=== PATIENT | female | born 1980 | race Caucasian/White ===

== ENCOUNTER 2017-02-06 23:59 | Emergency (ER) | payer OTHER ==
[2017-02-07 00:08] VITALS: RESP 18
[2017-02-07] MEDS ORDERED: PROPARACAINE 0.5% OPHTH DROPS 15 ML BTL LEFT EYE STA (00:25)
[2017-02-07] MEDS ORDERED: TOBRAMYCIN 0.3% OPHTH DROPS 5 ML BTL LEFT EYE STA (00:49)
--- NOTE | 2017-02-07 00:51 | ED ---
Eye Problem HPI - General Chief complaint: Eye Problems Stated complaint: Chemical in eye Time Seen by Provider: 02/07/17 00:12 Source: patient, family Mode of arrival: ambulatory Limitations: no limitations - History of Present Illness Initial comments: 36-year-old female patient possessed to emergency department today for evaluation of left eye discomfort and blurred vision. Patient states that she got splashed in the left eye with a paint stripping agent while stripping the stain from her deck around 1700 this afternoon. Patient states that it was just one drop to got into her eye. States she immediately flushed with water from the hose, and then flushed with an eyewash kit for 20 minutes. Patient states that after that she was asymptomatic however did develop some scratching/ burning pain to the eye intermittently since 5 PM. States once his symptoms started she flushed again with water. Patient states that she did phone poison control who instructed her to come here if she had any change in her vision. Patient states that she did have some intermittent blurriness and flashes to the left eye so presented for evaluation. She states currently she feels discomfort near the outer canthus of the eye. She states she occasionally has some watery discharge. She states that she does have some swelling to the upper and lower lid. She denies any headache, dizziness, neck pain, fever, or chills. Denies any other concerns. - Related Data Home Medications Medication Instructions Recorded Confirmed Escitalopram Oxalate [Lexapro] 10 mg PO DAILY 02/07/17 02/07/17 busPIRone HCL [Buspar] 7.5 mg PO BID 02/07/17 02/07/17 Allergies Allergy/AdvReac Type Severity Reaction Status Date / Time codeine AdvReac Unknown Verified 02/07/17 00:08 Review of Systems ROS Statement: Those systems with pertinent positive or pertinent negative responses have been documented in the HPI. ROS Other: All systems not noted in ROS Statement are negative. Past Medical History Past Medical History: GERD/Reflux Additional Past Medical History / Comment(s): Obstetric history: First was a vaginal delivery 8#, 2003. Second she delivered in an ambulance 7#14oz in 2011. Third was a miscarriage with D&C. This is her fourth and she has had care with Dr Carbajal since 14 weeks gestation. A+, Rub Imm, RPR NR, Hep B neg, HIV NR. GBS neg. History of Any Multi-Drug Resistant Organisms: None Reported Additional Past Surgical History / Comment(s): D&C Past Anesthesia/Blood Transfusion Reactions: No Reported Reaction Past Psychological History: Depression Smoking Status: Former smoker Past Alcohol Use History: None Reported Past Drug Use History: None Reported - Past Family History Mother Family Medical History: Diabetes Mellitus, Dialysis, Hypertension General Exam Limitations: no limitations General appearance: alert, in no apparent distress Eye exam: Present: normal appearance, PERRL, EOMI, conjunctival injection (Mild conjunctival injection on the left), other (Fluoresceins stain with with lamp examination reveals a area of fluorescein uptake in the sclera at approximately 3:00. No evidence of corneal abrasion, ulcer, or injury.). Absent: scleral icterus, nystagmus, periorbital swelling ENT exam: Present: normal exam, normal oropharynx, mucous membranes moist Respiratory exam: Present: normal lung sounds bilaterally. Absent: respiratory distress, wheezes, rales, rhonchi, stridor Cardiovascular Exam: Present: regular rate, normal rhythm, normal heart sounds. Absent: systolic murmur, diastolic murmur, rubs, gallop, clicks Neurological exam: Present: alert, oriented X3, CN II-XII intact Psychiatric exam: Present: normal affect, normal mood Skin exam: Present: warm, dry, intact, normal color. Absent: rash Course Vital Signs 02/07/17 02/07/17 00:06 01:22 Temperature 98.5 F 98 F Pulse Rate 75 90 Respiratory 18 18 Rate Blood Pressure 119/60 139/79 O2 Sat by Pulse 99 97 Oximetry Medical Decision Making - Medical Decision Making 36-year-old female patient presented for evaluation of left eye discomfort after a, call splash around 5 PM. Floor seen standing with with lamp examination was performed and did show uptake in the sclera. Patient did flush immediately with water, and did at least 20 minutes of rinsing with a home eyewash kit. Patient states that she has continued flushing intermittently throughout the day. I did call and speak to poison control who states that her flushing should've been sufficient. PH of the eye was 7.0. Patient will be discharged with tobramycin drops to be instilled 4 times daily. She is instructed to follow-up with [facility] in one to 2 days for recheck, she requested Dr. Anderson. She is instructed to return here immediately for any new , worsening, or concerning symptoms. Patient verbalizes understanding and agrees with this plan. Disposition Clinical Impression: Chemical conjunctivitis of left eye Disposition: HOME SELF-CARE Condition: Good Instructions: Conjunctivitis (ED) Additional Instructions: Use the tobramycin drops him a 2 drops to the left eye every 6 hours. Follow- up with [facility] in one to 2 days if symptoms haven't resolved. Return here immediately for any new, worsening, or concerning symptoms. Referrals: Karel Carpenter MD [Primary Care Provider] - 1-2 days Geovani Anderson MD [STAFF PHYSICIAN] - 1-2 days Time of Disposition: 00:51
[2017-02-07 01:24] VITALS: BP 139/79; PULSE 90; TEMP 98
== END 2017-02-07 01:23 | disposition home or self-care (01) ==
LOC: EC 23:59
DX: T65.6X1A Toxic effect of paints and dyes, not elsewhere classified, accidental (unintentional), initial encounter (principal); H10.212 Acute toxic conjunctivitis, left eye; F32.9 Major depressive disorder, single episode, unspecified; Z87.891 Personal history of nicotine dependence; Z79.899 Other long term (current) drug therapy; Z88.5 Allergy status to narcotic agent
CPT/HCPCS: 99283

== ENCOUNTER → 2019-07-27 | Outpatient (CLI) | payer OTHER ==
--- NOTE | 2019-07-27 10:24 | US ---
EXAMINATION TYPE: US OB <= 14 wk twins DATE OF EXAM: 07/27/2019 COMPARISON: NONE CLINICAL HISTORY: Z36 Comfirm dates. Confirm dates, 5, para 3, miscarriage 1 EXAM PERFORMED: Transabdominal (TA) EXAM MEASUREMENTS: GESTATIONAL AGE / DATING Physician Established: (11 weeks/5 days) EDC: 02/10/2020 Dates by LMP: (11 weeks/5 days) EDC: 02/10/2020 Dates by First Scan: This is 1st scan Dates by Current Scan for Baby A: (11 weeks/1 days) EDC: 02/14/2020 Dates by Current Scan for Baby B: (11 weeks/2 days) EDC: 02/13/2020 MATERNAL ANATOMY Uterus: 15.7 x 6.6 x 11.1cm Right Ovary: 2.9 x 1.9 x 1.7cm Left Ovary: 2.9 x 1.8 x 2.7cm Post CDS / Adnexa: wnl Presence of free fluid: no Presence of corpus luteal cyst: left ovary: 1.6 x 1.2 x 1.5cm Presence of subchorionic bleed: no Presence of two separate gestational sacs: yes GESTATION / SURVEY TWIN A CRL: 4.2cm (11 wks/1 day) Yolk Sac (normal less than 6mm): 5.0mm Heart Rate: 171 bpm Rhythm: Normal IUP: Live IUP Nuchal Translucency 10-14wks (normal less than 3mm): 1.3mm TWIN B CRL: 4.5cm (11 wks/2 days) Yolk Sac (normal less than 6mm): 5.3mm Heart Rate: 168 bpm Rhythm: Normal IUP: Live IUP Nuchal Translucency 10-14wks (normal less than 3mm): 1.3mm Date of LMP: 05/06/2019 Beta HcG (if available): Not available at time of exam. Live twin IUP with baby A measuring 11 weeks 1 day with a heart rate of 171bpm and an estimated deliv diana date of 02/14/2020 and baby B measuring 11 weeks 2 days with a heart rate of 168bpm and an estima dung delivery date of 02/13/2020. IMPRESSION: Dichorionic, diamnionic live twin with twin A having a current gestational sono graphic age of 11 weeks and 1 day and twin B of 11 weeks and 2 days.
== END | disposition home or self-care (01) ==
LOC: RADUSWWP 08:55
PROVIDERS: ATTEND Obstetrics & Gynecology
DX: Z36.89 Encounter for other specified antenatal screening (principal); Z3A.11 11 weeks gestation of pregnancy
CPT/HCPCS: 76801; 76802; 76813; 76814

== ENCOUNTER 2019-12-08 17:02 | Outpatient (CLI) | payer OTHER ==
[2019-12-08 18:57] LABS: Appearance,Urine Cloudy (Clear); Bacteria,Urine Rare /hpf; Bilirubin,Urine Negative (Negative); Blood,Urine Moderate (Negative); Color,Urine Yellow; Glucose,Urine (UA) Negative (Negative); Hyaline Casts,Urine 3 /lpf (0-2); Ketones,Urine 2+ (Negative); Leukocyte Esterase,Urine Negative (Negative); Mucus,Urine Many /hpf; Nitrite,Urine Negative (Negative); PH, Urine 6.5 (5.0-8.0); Protein,Urine 1+ (Negative); RBC,Urine >182 /hpf (0-5); Specific Gravity,Urine 1.019 (1.001-1.035); Squamous Epithelial Cell,Urine <1 /hpf (0-4); Urobilinogen,Urine <2.0 mg/dL (<2.0); WBC,Urine 5 /hpf (0-5)
[2019-12-08 19:17] VITALS: BP 124/58; PULSE 91; RESP 16; TEMP 98.2
--- NOTE | 2019-12-09 10:51 | P.MSEPDOC ---
Presenting Problems - Arrival Data Date of Arrival on Unit: 12/08/19 Time of Arrival on Unit: 17:45 Mode of Transport: Ambulatory - Complaint OB-Reason for Admission/Chief Complaint: Possible Onset of Labor Comment: rtsided, and lower back pain Medical History - Information : 5 Para: 3 Term: 3 : 0 Abortions: Spontaneous or Elective: 1 Number of Living Children: 3 - Gestational Age Gestational Age by ASHLEE (wks/days): 30 Weeks and 5 Days - History Complications: Other Comment: twins Review of Systems - Review of Systems Constitutional: No problems Breast: No problems ENT: No problems Cardiovascular: No problems Respiratory: No problems Gastrointestinal: No problems Genitourinary: No problems Musculoskeletal: No problems Neurological: No problems Skin: No problems Vital Signs - Temperature Temperature: 98.2 F Temperature Source: Temporal Artery Scan - Pulse Right Radial Pulse Rate: 91 Pulse Assessment Method: Automatic Cuff - Respirations Respiratory Rate: 16 Oxygen Delivery Method: Room Air O2 Sat by Pulse Oximetry: 99 - Blood Pressure Right Arm Blood Pressure: 124/58 Blood Pressure Mean: 80 Blood Pressure Source: Automatic Cuff Medical Screen Scoring (Pre) - Cervical Exam Dilation: 0 cm = 0 Effacement: Exam Deferred Membranes: Intact - Uterine Contractions Frequency: > 5 minutes apart = 1 Duration: N/A Intensity: N/A - Maternal Vital Signs Maternal Temperature: N/A Maternal Blood Pressure: N/A Signs of Preeclampsia: N/A Maternal Respirations: N/A - Maternal Trauma Maternal Trauma: N/A - Assessment - Baby A Baseline FHR: 140 Heart Rate - NICHD Category: Category I (Normal) = 0 NST: Reactive Position: N/A Station: N/A - Total Score - Baby A Total Score - Baby A: 1 - Total Score - Baby B Total Score - Baby B: 1 - Total Score - Baby C Total Score - Baby C: 1 - Level of Risk - Baby A Level of Risk - Baby A: Low (0-5) - Level of Risk - Baby B Level of Risk - Baby B: Low (0-5) - Level of Risk - Baby C Level of Risk - Baby C: Low (0-5) Physician Notification (Pre) - Physician Notified Physician Notified Date: 12/08/19 Physician Notified Time: 18:00 New Order Received: Yes (monitor, ffn, exam, oral hyderate) - Notification Comment Comment: dr hernandez here. ffn and exam done per dr Disposition - Disposition OB Disposition: Physician follow up in office, Discharge to home, Written follow up instructions reviewed Discharge Date: 12/08/19 Discharge Time: 19:25 I agree with the RN Medical Screening Exam: Yes Risk & Benefit of care provided described in d/c instruction: Yes Diagnosis: FALSE LABOR BEFORE 37 COMPLETED WEEKS OF GEST, THIRD TRI
== END 2019-12-08 19:25 | disposition home or self-care (01) ==
LOC: FBPOP 17:02
PROVIDERS: ATTEND Obstetrics & Gynecology
DX: O47.03 False labor before 37 completed weeks of gestation, third trimester (principal); Z3A.30 30 weeks gestation of pregnancy
CPT/HCPCS: 59025; 82731; 81001; G0463; 99213

== ENCOUNTER 2019-12-13 02:58 | Observation (INO) | payer OTHER ==
[2019-12-13] MEDS ORDERED: LACTATED RINGERS 1,000 ML IV SCH ×2 (03:45)
[2019-12-13 04:22] LABS: Basophils % (A) 0 %; Eosinophils # (A) 0.1 k/uL (0-0.7); Eosinophils % (A) 1 %; HCT 32.6 % (34.0-46.0); HGB 10.8 gm/dL (11.4-16.0); Lymphocytes # (A) 1.1 k/uL (1.0-4.8); Lymphocytes % (A) 13 %; MCH 28.8 pg (25.0-35.0); MCHC 33.2 g/dL (31.0-37.0); MCV 86.6 fL (80.0-100.0); Monocytes # (A) 0.5 k/uL (0-1.0); Monocytes % (A) 7 %; Neutrophils # (A) 6.3 k/uL (1.3-7.7); Neutrophils % (A) 78 %; Platelet Count 145 k/uL (150-450); RBC 3.76 m/uL (3.80-5.40); WBC 8.1 k/uL (3.8-10.6)
[2019-12-13 04:24] LABS: ALT 10 U/L (4-34); AST 27 U/L (14-36); African American GFR (CKD) >90 (>60 ml/min/1.73 sqM); Albumin 3.2 g/dL (3.5-5.0); Alkaline Phosphatase 106 U/L (38-126); Anion Gap 6 mmol/L; Appearance,Urine Clear (Clear); Bilirubin,Urine Negative (Negative); Blood Urea Nitrogen 10 mg/dL (7-17); Blood,Urine Negative (Negative); Carbon Dioxide 23 mmol/L (22-30); Chloride 102 mmol/L (98-107); Color,Urine Light Yellow; Glucose 99 mg/dL (74-99); Glucose,Urine (UA) Negative (Negative); Ketones,Urine Negative (Negative); Leukocyte Esterase,Urine Negative (Negative); Nitrite,Urine Negative (Negative); Non-African American GFR(CKD) 88 (>60 ml/min/1.73 sqM); PH, Urine 7.5 (5.0-8.0); Potassium 3.4 mmol/L (3.5-5.1); Protein,Urine Negative (Negative); Sodium 131 mmol/L (137-145); Specific Gravity,Urine 1.004 (1.001-1.035); Total Bilirubin 0.3 mg/dL (0.2-1.3); Total Protein 5.8 g/dL (6.3-8.2); Urobilinogen,Urine <2.0 mg/dL (<2.0)
[2019-12-13] MEDS ORDERED: CITRIC ACID-SODIUM CITRATE 15 ML CUP PO ONE (04:45)
[2019-12-13] MEDS ORDERED: BUTORPHANOL 1 MG/ML 1 ML VIAL IV PRN (04:46)
--- NOTE | 2019-12-13 06:03 | P.HPOB ---
History of Present Illness H&P Date: 12/13/19 Chief Complaint: Kidney stone pain This patient is a 39-year-old 5 para 3 female with estimated date of confinement 02/10/2020 estimated gestational age 31-4/7 weeks gestation who called earlier this evening with complaints of worsening right-sided back pain that she feels is due to kidney stones. Patient has a known twin gestation. Patient's care is per Dr. Carbajal. Patient was apparently seen in labor and delivery last Wednesday with complaints of a similar pain at that time had some microscopic hematuria. fibronectin was negative and her cervix apparently was closed. Patient was discharged home and encouraged to have increased hydration. She was seen in the office yesterday and states that her pain is intermittently, and going but became much worse last night. At this time heart tones are category 1. Patient is having intermittent contractions every 2-5 minutes that do not appear strong. Repeat urinalysis is negative without e vidence of blood. Laboratory evaluation is negative as well. Patient refuses pelvic exam at this time because she is under the impression that it will increase her risk of delivery. Review of Systems Genitourinary: Reports flank pain, Reports Menstruation: Reports amenorrhea Past Medical History Past Medical History: GERD/Reflux, Hearing Disorder / Deafness History of Any Multi-Drug Resistant Organisms: None Reported Additional Past Surgical History / Comment(s): D&C Past Anesthesia/Blood Transfusion Reactions: No Reported Reaction Past Psychological History: Depression Smoking Status: Never smoker Past Alcohol Use History: None Reported Past Drug Use History: None Reported - Past Family History Mother Family Medical History: Diabetes Mellitus, Dialysis, Hypertension Medications and Allergies Home Medications Medication Instructions Recorded Confirmed Type Pnv No.95/Ferrous Fum/Folic AC 1 each PO DAILY 12/13/19 12/13/19 History [ Multivitamin Tablet] RX: Iron 1 tab PO DAILY 12/13/19 12/13/19 History Allergies Allergy/AdvReac Type Severity Reaction Status Date / Time codeine AdvReac Unknown Verified 12/13/19 03:21 Exam Vital Signs Temp Pulse Resp BP Pulse Ox 12/13/19 03:30 96.7 F L 77 16 133/74 98 Intake and Output 12/12/19 12/12/19 12/13/19 14:59 22:59 06:59 Other: Weight 83.007 kg Patient refused pelvic exam Results Result Diagrams: 12/13/19 03:50 12/13/19 03:50 Abnormal Lab Results - Last 24 Hours (Table) 12/13/19 12/13/19 Range/Units 03:50 03:50 RBC 3.76 L (3.80-5.40) m/uL Hgb 10.8 L (11.4-16.0) gm/dL Hct 32.6 L (34.0-46.0) % Plt Count 145 L (150-450) k/uL Sodium 131 L (137-145) mmol/L Potassium 3.4 L (3.5-5.1) mmol/L Total Protein 5.8 L (6.3-8.2) g/dL Albumin 3.2 L (3.5-5.0) g/dL Assessment and Plan Assessment: This is a 39-year-old 5 para 3 female 31-4/7 weeks gestation who presents to labor and delivery with persistent flank pain. Patient did have a urinalysis on Wednesday with hematuria however this appears to have cleared. Patient this time is refusing cervical examination because she is under the impression this will increase her risk of delivery. I did explain to her that there is no evidence that cervical exams increased risk of labor or delivery. In fact it is even more important to have frequent pelvic exams and a twin gestation to detect premature dilation. Regardless, we have decided that she will discuss this with her primary dietary server this morning and she can decide if she wants to have a cervical exam. She is having contractions every 2-5 minutes on the monitor although they do not appear significant. I also ordered a bilateral renal ultrasound to see if the patient has any visible kidney stones. I had a discussion with the patient and her about the clinical plan and they understand and all questions were answered. (1) 31 to 32 weeks gestation of Current Visit: Yes Status: Acute Code(s): LPO5276 - SNOMED Code(s): 486825722 (2) Twin gestation in third trimester Current Visit: Yes Status: Acute Code(s): O30.003 - TWIN PREG, UNSP NUM PLCNTA & AMNIO SACS, THIRD TRIMESTER SNOMED Code(s): 73735096 (3) Flank pain in patient Current Visit: Yes Status: Acute Code(s): O26.899 - OTH RELATED CONDITIONS, UNSPECIFIED TRIMESTER; R10.9 - UNSPECIFIED ABDOMINAL PAIN SNOMED Code(s): 193672685
--- NOTE | 2019-12-13 09:17 | US ---
EXAMINATION TYPE: US kidneys/renal and bladder DATE OF EXAM: 12/13/2019 COMPARISON: NONE CLINICAL HISTORY: possible kidney stones. Right flank and back pain, hematuria, patient is 31 weeks p regnant EXAM MEASUREMENTS: Right Kidney: 12.6 x 6.0 x 6.7 cm Left Kidney: 11.5 x 5.3 x 6.5 cm Right Kidney: Moderate hydronephrosis. No shadowing nephrolithiasis. Left Kidney: No hydronephrosis. No shadowing nephrolithiasis. Urinary Bladder: Not visualized. Entrepreneurial Finance Professor reports patient voided just prior to examination. IMPRESSION: 1. Moderate right-sided hydronephrosis. Differential includes physiological changes of jake nirav obstructive uropathy. No nephrolithiasis seen. 2. No left hydronephrosis. 3. Urinary bladder is empty and not visualized.
[2019-12-13 09:34] VITALS: BP 109/57; PULSE 83; RESP 18; TEMP 96.8
--- NOTE | 2019-12-13 09:52 | P.GSCN ---
History of Present Illness Consult date: 12/13/19 History of present illness: The patient is a 39-year-old female 5 para 3, 31-1/2 weeks who last Steven developed right flank pain. She presented to the hospital. She is found to have microscopic hematuria. An ultrasound showed right hydronephrosis. It was assumed based on these findings that she had a ureteral stone. The patient had no history of ureteral stones. Discharged home with pain medicine. The pain worsened such that she re-presented to the hospital last night. She had another ultrasound identifying right-sided hydronephrosis. She has no evidence of hematuria at this point in time. She points to discomfort at her right sacroiliac joint. There is no radiation of the discomfort. Her pain is 5 out of 10 at this point in time. Review of Systems All systems: negative - Constitutional Denies fever, Denies weight loss - EENT Eyes: denies blurred vision Ears, nose, mouth and throat: Denies dysphagia - Cardiovascular Denies chest pain, Denies shortness of breath - Respiratory Denies cough, Denies 7 - Gastrointestinal Reports as per HPI - Genitourinary Genitourinary: Denies dysuria, Denies hematuria - Integumentary Denies rash, Denies unusual bruising - Neurological Denies headaches, Denies syncope - Hematologic/Lymphatic Denies easy bleeding, Denies easy bruising Past Medical History Past Medical History: GERD/Reflux, Hearing Disorder / Deafness Additional Past Medical History / Comment(s): Obstetric history: First was a vaginal delivery 8#, 2003. Second she delivered in an ambulance 7#14oz in 2011. Third was a miscarriage with D&C. This is her fourth and she has had care with Dr Carbajal since 14 weeks gestation. A+, Rub Imm, RPR NR, Hep B neg, HIV NR. GBS neg. History of Any Multi-Drug Resistant Organisms: None Reported Additional Past Surgical History / Comment(s): D&C Past Anesthesia/Blood Transfusion Reactions: No Reported Reaction Past Psychological History: Depression Smoking Status: Never smoker Past Alcohol Use History: None Reported Past Drug Use History: None Reported - Past Family History Mother Family Medical History: Diabetes Mellitus, Dialysis, Hypertension Medications and Allergies Home Medications Medication Instructions Recorded Confirmed Type Iron 1 tab PO DAILY 12/13/19 12/13/19 History Pnv No.95/Ferrous Fum/Folic AC 1 each PO DAILY 12/13/19 12/13/19 History [ Multivitamin Tablet] Allergies Allergy/AdvReac Type Severity Reaction Status Date / Time codeine AdvReac Unknown Verified 12/13/19 03:21 Surgical - Exam Vital Signs Temp Pulse Resp BP Pulse Ox 96.7 F L 77 16 133/74 98 12/13/19 03:30 12/13/19 03:30 12/13/19 03:30 12/13/19 03:30 12/13/19 03:30 - General Mild distress well developed, well nourished - Eyes PERRL - ENT no hearing loss - Neck trachea midline - Respiratory normal expansion, normal respiratory effort - Cardiovascular Rhythm: regular - Abdomen The patient is obviously . She has pain overlying the right sacroiliac joint. - Neurologic normal coordination, normal sensation - Musculoskeletal normal gait, normal posture - Psychiatric oriented to time, oriented to person, oriented to place, speech is normal, memory intact Results - Labs 12/13/19 03:50 12/13/19 03:50 Abnormal Lab Results - Last 24 Hours (Table) 12/13/19 12/13/19 Range/Units 03:50 03:50 RBC 3.76 L (3.80-5.40) m/uL Hgb 10.8 L (11.4-16.0) gm/dL Hct 32.6 L (34.0-46.0) % Plt Count 145 L (150-450) k/uL Sodium 131 L (137-145) mmol/L Potassium 3.4 L (3.5-5.1) mmol/L Total Protein 5.8 L (6.3-8.2) g/dL Albumin 3.2 L (3.5-5.0) g/dL Diabetes panel 12/13/19 Range/Units 03:50 Sodium 131 L (137-145) mmol/L Potassium 3.4 L (3.5-5.1) mmol/L Chloride 102 (98-107) mmol/L Carbon Dioxide 23 (22-30) mmol/L BUN 10 (7-17) mg/dL Creatinine 0.85 (0.52-1.04) mg/dL Glucose 99 (74-99) mg/dL Calcium 10.0 (8.4-10.2) mg/dL AST 27 (14-36) U/L ALT 10 (4-34) U/L Alkaline Phosphatase 106 (38-126) U/L Total Protein 5.8 L (6.3-8.2) g/dL Albumin 3.2 L (3.5-5.0) g/dL Calcium panel 12/13/19 Range/Units 03:50 Calcium 10.0 (8.4-10.2) mg/dL Albumin 3.2 L (3.5-5.0) g/dL Pituitary panel 12/13/19 Range/Units 03:50 Sodium 131 L (137-145) mmol/L Potassium 3.4 L (3.5-5.1) mmol/L Chloride 102 (98-107) mmol/L Carbon Dioxide 23 (22-30) mmol/L BUN 10 (7-17) mg/dL Creatinine 0.85 (0.52-1.04) mg/dL Glucose 99 (74-99) mg/dL Calcium 10.0 (8.4-10.2) mg/dL Adrenal panel 12/13/19 Range/Units 03:50 Sodium 131 L (137-145) mmol/L Potassium 3.4 L (3.5-5.1) mmol/L Chloride 102 (98-107) mmol/L Carbon Dioxide 23 (22-30) mmol/L BUN 10 (7-17) mg/dL Creatinine 0.85 (0.52-1.04) mg/dL Glucose 99 (74-99) mg/dL Calcium 10.0 (8.4-10.2) mg/dL Total Bilirubin 0.3 (0.2-1.3) mg/dL AST 27 (14-36) U/L ALT 10 (4-34) U/L Alkaline Phosphatase 106 (38-126) U/L Total Protein 5.8 L (6.3-8.2) g/dL Albumin 3.2 L (3.5-5.0) g/dL - Imaging US - abdomen: report reviewed, image reviewed US - pelvic: report reviewed, image reviewed Assessment and Plan Assessment: Impression: Right-sided flank pain with hydronephrosis. Possibilities include normal , sacroiliac irritation, right ureteral stone. Recommendations: Since the patient's discomfort is not too bad I would observe her another 24 hours. If the pain persists then a KUB to be appropriate to see if we can see a stone. I discussed with the patient that at this stage of her KUB be safe for the fetus at 31-1/2 weeks. However regardless I would like to minimize any radiation if possible. We'll see how she proceeds over the next 24 hours.
--- NOTE | 2019-12-13 13:36 | P.DS ---
Providers Date of admission: 12/13/19 03:36 Expected date of discharge: 12/13/19 Attending physician: Taylor Carbajal Consults: 12/13/19 09:07 Consult Physician Urgent Consulting Provider: LUCRECIA TALBERT Urology Consult Reason/Comments: Possible kidney stone in Do you want consulting provider notified?: Yes Primary care physician: Stated None Hospital Course: This is a 39-year-old female with twin at approximately 31-1/2 weeks who presented with right back and flank pain. She had previously noted some blood when she urinated a few days ago and did have hematuria when she was in triage on Wednesday. Her urine is now clear. She did have an ultrasound of her kidneys that did show some right hydronephrosis. No stones were visualized. She was seen by urology. They did recommend that if her pain worsened, we could get a KUB x-ray. She currently states her pain is manageable and she has not requested any further pain medication. She is requesting to go home at this time. Vital signs are stable. Abdomen is soft and nontender. heart tones on both babies are reactive with irregular contractions. Pelvic exam was not performed per patient request. Her cervix was closed on Wednesday. Impression is twin gestation at 31-1/2 weeks, probable right kidney stone. Plan is to discharge home. She will continue oral hydration. I will give her a few Ty lenol with Codeine to take if needed. She states she does not have ALLERGY to codeine but only states that her mother told her it made her hyper. She will follow up in the office as scheduled and she is planning on doing nonstress tests twice weekly starting next week. She is advised to return to the hospital if she has any severe pain or bleeding. Patient Condition at Discharge: Stable Plan - Discharge Summary New Discharge Prescriptions: New Acetaminophen-Codeine 300-30mg [Tylenol w/codeine #3] 1 tab PO Q6H PRN 3 Days #12 tablet PRN Reason: Moderate To Severe Pain No Action Pnv No.95/Ferrous Fum/Folic AC [ Multivitamin Tablet] 1 each PO DAILY Iron 1 tab PO DAILY Discharge Medication List Acetaminophen-Codeine 300-30mg [Tylenol w/codeine #3] 1 tab PO Q6H PRN 3 Days #12 tablet 12/13/19 [Rx] Iron 1 tab PO DAILY 12/13/19 [History] Pnv No.95/Ferrous Fum/Folic AC [ Multivitamin Tablet] 1 each PO DAILY 12/13/19 [History] Follow up Appointment(s)/Referral(s): Taylor Carbajal DO [Doctor of Osteopathic Medicine] - 10 Days (Keep currently scheduled appointment) Discharge Disposition: HOME SELF-CARE
--- NOTE | 2019-12-14 07:18 | P.PN ---
Progress Note - Text Progress Note Date: 12/14/19 I stopped by to see this patient who is 31 weeks' and in the hospital for right flank pain with a possible stone. Her examination identified pain over the SI joint on the right side. She apparently after I saw her yesterday felt much better and elected to go home. I am not certain whether there is a stone. Based on her physical examination and I do not suspect so however she did have a urinalysis, non-clean catch non-catheterized that showed microscopic hematuria last week. Further urologic problems arise please feel free to contact me.
== END 2019-12-13 14:45 | disposition home or self-care (01) ==
LOC: FBPOP 02:58 → 4FBP 03:36
PROVIDERS: ADMIT Obstetrics & Gynecology; ATTEND Obstetrics & Gynecology
DX: O99.89 Other specified diseases and conditions complicating pregnancy, childbirth and the puerperium (principal); N13.30 Unspecified hydronephrosis; O26.893 Other specified pregnancy related conditions, third trimester; O62.0 Primary inadequate contractions; O30.003 Twin pregnancy, unspecified number of placenta and unspecified number of amniotic sacs, third trimester; O99.613 Diseases of the digestive system complicating pregnancy, third trimester; K21.9 Gastro-esophageal reflux disease without esophagitis; H91.90 Unspecified hearing loss, unspecified ear; O99.343 Other mental disorders complicating pregnancy, third trimester; F32.9 Major depressive disorder, single episode, unspecified; Z3A.31 31 weeks gestation of pregnancy; Z98.890 Other specified postprocedural states; Z87.448 Personal history of other diseases of urinary system; Z79.899 Other long term (current) drug therapy; Z88.5 Allergy status to narcotic agent; Z83.3 Family history of diabetes mellitus; Z84.1 Family history of disorders of kidney and ureter; Z82.49 Family history of ischemic heart disease and other diseases of the circulatory system; M54.5 Low back pain
CPT/HCPCS: 59025; 96374; 80053; 85025; 81003; 76770; G0463; G0378; J0595; 96360; 96361; 99214

== ENCOUNTER 2019-12-18 15:44 | Outpatient (CLI) | payer OTHER ==
--- NOTE | 2019-12-21 19:37 | P.MSEPDOC ---
Presenting Problems - Arrival Data Date of Arrival on Unit: 12/18/19 Time of Arrival on Unit: 15:44 Mode of Transport: Ambulatory - Complaint OB-Reason for Admission/Chief Complaint: NST Comment: pt here for twice weekly NST for twin gestation Medical History - Information : 5 Para: 3 Term: 3 : 0 Abortions: Spontaneous or Elective: 1 Number of Living Children: 2 - Gestational Age Gestational Age by ASHLEE (wks/days): 32 Weeks and 2 Days Review of Systems - Review of Systems Constitutional: No problems Breast: No problems ENT: No problems Cardiovascular: No problems Respiratory: No problems Gastrointestinal: No problems Genitourinary: No problems Musculoskeletal: No problems Neurological: No problems Skin: No problems Physician Notification (Pre) - Physician Notified Physician Notified Date: 12/18/19 Physician Notified Time: 16:48 New Order Received: Yes - Notification Comment Comment: discharge pt home Disposition - Disposition OB Disposition: Discharge to home, Written follow up instructions reviewed Discharge Date: 12/18/19 Discharge Time: 16:55 I agree with the RN Medical Screening Exam: Yes Risk & Benefit of care provided described in d/c instruction: Yes Diagnosis: TWIN , DICHORIONIC/DIAMNIOTIC, THIRD TRIMESTER
== END 2019-12-18 16:55 | disposition home or self-care (01) ==
LOC: FBPOP 15:44
PROVIDERS: ATTEND Obstetrics & Gynecology
DX: O30.043 Twin pregnancy, dichorionic/diamniotic, third trimester (principal); Z3A.32 32 weeks gestation of pregnancy
CPT/HCPCS: 59025

== ENCOUNTER 2019-12-22 13:34 | Outpatient (CLI) | payer OTHER | END 2019-12-22 14:12 | disposition home or self-care (01) | LOC: FBPOP 13:34 | PROVIDERS: ATTEND Obstetrics & Gynecology | DX: O30.009 Twin pregnancy, unspecified number of placenta and unspecified number of amniotic sacs, unspecified trimester (principal); Z3A.00 Weeks of gestation of pregnancy not specified | CPT/HCPCS: 59025; G0463; 99213 ==

== ENCOUNTER 2019-12-25 10:09 | Outpatient (CLI) | payer OTHER ==
[2019-12-25 10:54] VITALS: BP 124/71; PULSE 113; RESP 15; TEMP 98.1
--- NOTE | 2019-12-28 12:15 | P.MSEPDOC ---
Presenting Problems - Arrival Data Date of Arrival on Unit: 12/25/19 Time of Arrival on Unit: 10:09 Mode of Transport: Ambulatory - Complaint OB-Reason for Admission/Chief Complaint: NST Medical History - Information : 5 Para: 3 Term: 3 : 0 Abortions: Spontaneous or Elective: 1 Number of Living Children: 3 - Gestational Age Gestational Age by ASHLEE (wks/days): 33 Weeks and 2 Days - History Complications: Multiple Review of Systems - Review of Systems Constitutional: No problems Breast: No problems ENT: No problems Cardiovascular: No problems Respiratory: No problems Gastrointestinal: No problems Genitourinary: No problems Musculoskeletal: No problems Neurological: No problems Skin: No problems Vital Signs - Temperature Temperature: 98.1 F Temperature Source: Oral - Pulse Brachial Pulse Rate: 113 Pulse Assessment Method: Auscultation - Respirations Respiratory Rate: 15 Oxygen Delivery Method: Room Air O2 Sat by Pulse Oximetry: 98 - Blood Pressure Right Arm Blood Pressure: 124/71 Blood Pressure Mean: 88 Blood Pressure Source: Automatic Cuff Medical Screen Scoring (Pre) - Cervical Exam Dilation: Exam Deferred Effacement: Exam Deferred Membranes: Intact - Uterine Contractions Frequency: N/A Duration: N/A Intensity: N/A - Maternal Vital Signs Maternal Temperature: N/A Maternal Blood Pressure: N/A Signs of Preeclampsia: N/A Maternal Respirations: N/A - Maternal Trauma Maternal Trauma: N/A - Assessment - Baby A Baseline FHR: 145 Heart Rate - NICHD Category: Category I (Normal) = 0 NST: Reactive Position: N/A Station: N/A - Assessment - Baby B Baseline FHR: 135 Heart Rate - NICHD Category: Category I (Normal) = 0 NST: Reactive Position: N/A Station: N/A - Total Score - Baby A Total Score - Baby A: 0 - Total Score - Baby B Total Score - Baby B: 0 - Total Score - Baby C Total Score - Baby C: 0 - Level of Risk - Baby A Level of Risk - Baby A: Low (0-5) - Level of Risk - Baby B Level of Risk - Baby B: Low (0-5) - Level of Risk - Baby C Level of Risk - Baby C: Low (0-5) Physician Notification (Pre) - Physician Notified Physician Notified Date: 12/25/19 Physician Notified Time: 10:41 New Order Received: Yes Disposition - Disposition OB Disposition: Discharge to home Discharge Date: 12/25/19 Discharge Time: 10:44 I agree with the RN Medical Screening Exam: Yes Risk & Benefit of care provided described in d/c instruction: Yes Diagnosis: TWIN , DICHORIONIC/DIAMNIOTIC, THIRD TRIMESTER
== END 2019-12-25 10:44 | disposition home or self-care (01) ==
LOC: FBPOP 10:09
PROVIDERS: ATTEND Obstetrics & Gynecology
DX: O30.043 Twin pregnancy, dichorionic/diamniotic, third trimester (principal); Z3A.33 33 weeks gestation of pregnancy
CPT/HCPCS: 59025

== ENCOUNTER 2019-12-29 11:02 | Outpatient (CLI) | payer OTHER | END 2019-12-29 11:44 | disposition home or self-care (01) | LOC: FBPOP 11:02 | PROVIDERS: ATTEND Obstetrics & Gynecology | DX: O30.009 Twin pregnancy, unspecified number of placenta and unspecified number of amniotic sacs, unspecified trimester (principal); Z3A.00 Weeks of gestation of pregnancy not specified | CPT/HCPCS: 59025 ==

== ENCOUNTER 2020-01-01 08:51 | Outpatient (CLI) | payer OTHER | END 2020-01-01 09:52 | disposition home or self-care (01) | LOC: FBPOP 08:51 | PROVIDERS: ATTEND Obstetrics & Gynecology | DX: O30.003 Twin pregnancy, unspecified number of placenta and unspecified number of amniotic sacs, third trimester (principal) | CPT/HCPCS: 59025 ==

== ENCOUNTER 2020-01-03 19:30 | Observation (INO) | payer OTHER ==
[2020-01-03] MEDS ORDERED: BETAMET ACET-BETAMETH SOD PHOS 6 MG/ML MDV IM SCH (20:30)
[2020-01-03] MEDS: LACTATED RINGERS 1,000 ML IV SCH ×2 (20:53→23:42)
[2020-01-03 21:04] LABS: Appearance,Urine Clear (Clear); Bacteria,Urine Occasional /hpf; Bilirubin,Urine Negative (Negative); Blood,Urine Small (Negative); Color,Urine Light Yellow; Glucose,Urine (UA) Negative (Negative); Ketones,Urine Negative (Negative); Leukocyte Esterase,Urine Negative (Negative); Nitrite,Urine Negative (Negative); Protein,Urine Negative (Negative); RBC,Urine <1 /hpf (0-5); Specific Gravity,Urine 1.006 (1.001-1.035); Squamous Epithelial Cell,Urine 1 /hpf (0-4); Urobilinogen,Urine <2.0 mg/dL (<2.0); WBC,Urine 1 /hpf (0-5)
--- NOTE | 2020-01-03 22:44 | US ---
EXAMINATION TYPE: US OB >= 14 wk twins DATE OF EXAM: 01/03/2020 COMPARISON: US CLINICAL HISTORY: position. Position, EFW. . A1. GESTATIONAL AGE / DATING Physician Established: (34 weeks/4 days) EDC: 02/10/2020 Dates by LMP: (34 weeks/4 days) EDC: 02/10/2020 Dates by First Scan Baby A: (34 weeks/1 day) EDC: 02/13/2020 (*First scan, this was baby B measurement.) Dates by Current Scan for Baby A: (33 weeks/6 days) EDC: 02/15/2020 Dates by First Scan Baby B: (34 weeks/0 days) EDC: 02/14/2020 (*First scan, this was baby A measurement) Dates by Current Scan for Baby B: (34 weeks/3 days) EDC: 02/11/20 GENERAL TWIN SURVEY TWIN A LOCATION in regards to maternal abd: Maternal left. head appears closest to cervix. TWIN B LOCATION in regards to maternal abd: Maternal right. MEMBRANE SEEN: Yes CERVICAL LENGTH (transabdominal; norm > 3.0cm): Not well seen, not transvaginal exam necessary per Dr Sigrid Garsia. PLACENTA: Anterior. Hypoechoic area seen measurin.2 x 0.8 x 1.3 cm. PREVIA: No previa seen. Possible posterior lobe posterior to baby B. Limited evaluation and visibility of this area. TWIN A: SURVEY/BIOMETRY SPENCER:? 13.56 cm?Normal PRESENTATION: Vertex LIE: Longitudinal BPD: 8.48 cm 34 weeks / 1 day HC: 30.81 cm 34 weeks / 3 days AC: 30.75 cm 34 weeks / 5 days FL: 6.60 cm 34 weeks / 0 days ESTIMATED WEIGHT IN GRAMS: 2424 grams ESTIMATED WEIGHT IN LBS/OZS: 5 lbs. 6 oz. WEIGHT PERCENTAGE BASED ON ESTABLISHED DATES: 40.3% HC/AC: 1.00 Normal FL/AC: 21.46 Normal HEART RATE: 146 bpm RHYTHM: Normal TWIN B: SURVEY/BIOMETRY SPENCER:? 15.22 cm?Normal PRESENTATION: Breech LIE: Longitudinal BPD: 8.38 cm 33 weeks / 5 days HC: 31.39 cm 35 weeks / 1 day AC: 30.92 cm 34 weeks / 6 days FL: 6.77 cm 34 weeks / 6 days ESTIMATED WEIGHT IN GRAMS: 2509 grams ESTIMATED WEIGHT IN LBS/OZS: 5 lbs. 9 oz. WEIGHT PERCENTAGE BASED ON ESTABLISHED DATES: 50.9% HC/AC: 1.02 Normal FL/AC: 21.89 Normal HEART RATE: 132 bpm RHYTHM: Normal *Head measurements limited. IMPRESSION: Fetus A has cephalic presentation. Fetus B has breech presentation. There is satisfactory growth compared to 07/27/2019 exam. amniotic fluid is adequate.
--- NOTE | 2020-01-03 23:33 | P.HPOB ---
History of Present Illness H&P Date: 01/03/20 Chief Complaint: Intrauterine twins: labor Taylor is a 39-year-old at 34 weeks 4 days gestation arrives complaining of contractions. Initially on the monitor she was italia every 6-8 minutes and was dilated to 1&1/2 cm and 50% effaced and -3 station. fFn was collected and sent. Due to her prematurity and previous position as baby a breech a ultrasound was done SPENCER's. u/s Grossly normal, assessment weight was 5 lbs. 6 oz. and 5 lbs. 9 oz. in baby A and B. Baby a was vertex baby B continues to be breech. After approximately 2 hours of monitoring her contractions actually had spaced out dramatically and we were discussing recheck to allow her to go home. I addressed the patient and the and informed them that I wanted do a cervical exam to check and make sure she had not made cervical change and was stable for discharge. the became irate and said that I wasn't going to check her and I couldn't check her and that the original nurse had to check her because they didn't want any difference of opinion happening because they previously had a baby delivered in an ambulance because, it is their opinion that 2 separate nurses checked her and did not identify cervical change and discharge her to home with a previous . I tried to explain that I was then on-call and was ultimately my decision on whether not she was checked and whether or not she was stable to go home or stay and was really my responsibility to make sure that she and her babies were okay to be discharged home. he became argumentative and belligerent and said that I Was Not Going to Be Able to Check her. I tried to explain to him that it was really Taylor's decision and he informed me that she had previously told him that no one else was going to check her cervix . As there was little pointing arguing with him I explained explained that I need to document his refusal for me to be able to check his and I also explained that we would allow the nurse to continue to use a cervical exams. At one point during the discussion he did begin to stand up and point's finger and declared that I was "pissing him off". I also did inform them that they were compromising my ability to make correct decisions in her care moving forward since the decisions I was making were then based on other people's information rather than my own and that that puts me and they're babies at a disadvantage. I did try to explain over and over that it was I was trying to do was in my pain in their best interest and that I was looking out for them but he was very angry and upset so in making every attempt diffuse the situation I have allowed the nurse to check her and explained that the information again that I have is now not my own and making decisions based on summary someone else's information. The recheck did not show any cervical change and the fFn was negative. We had discussed because the contractions began getting closer together again either allowing her to stay overnight and receiving a second dose of steroids either in the morning or after 24 hours versus allowing her to go home and monitored herself. At this time she was not a candidate for transfer as she had made no cervical change and had a negative fFn, but I did offer them transfer as she is before 35 weeks and does have a twin and is italia they declined to transfer.. I did continue to monitor the babies and contraction pattern for approximately 30 minutes more. the contractions continued every 2-3 minutes so I again returned to the room and explained that I didn't a feel comfortable just discharging her to home and I felt she should stay and be monitored through the night. I explained the reasoning was predominantly that the fFn, while very accurate does have a failure rate of approximately 7% in twin gestations and w ith her history of precipitous delivery it would be safer to at least have her here so that if she was to start going into active labor we could either transfer her or in a worse case scenario come in and do a but her babies be transferred to another facility. Both twins a and B have been reactive throughout the evening have shown no abnormal heart tracings. Category 1 tracing noted on both babies. All questions are answered for both she and her at this time. We'll allow Dr. Carbajal to decide if steroids will be given at 12 hours or if she will, assuming stability of the and babies, discharge her and bring her back in 24 hours for second steroid dose area Taylor relates no other significant problems with the and is otherwise felt fine. Past medical history unremarkable Past surgical history D&C ALLERGIES none Social history unremarkable Family history of diabetes in her mother which ultimately caused her passing On physical exam vital signs are stable and afebrile. Heart regular, lungs clear, extremities without pain. Abdomen soft uterus is overall soft with continued what I would describe as mild to moderate contractions. She relates no other signs or symptoms of active labor (i.e. Breathing through them ,declaring they are painful, grimacing and pain, increasing or worsening of pelvic pressure). no cervical change has been noted in greater than 2 hours. We've discussed and the plan is to not recheck her cervix unless she begins to show increase signs or symptoms of labor including but not limited to above. Should that happen we will do another cervical exam and make decisions based on that finding. The decisions as reviewed her again were transfer of care versus continued monitoring versus potentially need to do the here and the babies ultimately may be transferred if that is the case. She is aware that there is a risk of needing magnesium sulfate if she goes into active labor to at least try and buy enough time for second steroid dose or allow for transfer. Assessment intrauterine Precis at 34 weeks 4 days gestation with twins: labor symptoms Plan: Continued IV hydration and contraction monitoring. Past Medical History Past Medical History: GERD/Reflux, Hearing Disorder / Deafness Additional Past Medical History / Comment(s): Obstetric history: First was a vaginal delivery 8#, 2003. Second she delivered in an ambulance 7#14oz in 2011. Third was a miscarriage with D&C. This is her fourth and she has had care with Dr Carbajal since 14 weeks gestation. A+, Rub Imm, RPR NR, Hep B neg, HIV NR. GBS neg. History of Any Multi-Drug Resistant Organisms: None Reported Additional Past Surgical History / Comment(s): D&C Past Anesthesia/Blood Transfusion Reactions: No Reported Reaction Smoking Status: Never smoker - Past Family History Mother Family Medical History: Diabetes Mellitus, Dialysis, Hypertension Medications and Allergies Home Medications Medication Instructions Recorded Confirmed Type Iron 1 tab PO DAILY 12/13/19 01/03/20 History Pnv No.95/Ferrous Fum/Folic AC 1 each PO DAILY 12/13/19 01/03/20 History [ Multivitamin Tablet] Allergies Allergy/AdvReac Type Severity Reaction Status Date / Time codeine AdvReac Unknown Verified 01/03/20 19:51 Exam Osteopathic Statement: *. No significant issues noted on an osteopathic structural exam other than those noted in the History and Physical/Consult. Vital Signs Temp Pulse Resp BP Pulse Ox 01/03/20 19:47 97.0 F L 107 H 18 114/74 98 Intake and Output 01/03/20 01/03/20 01/04/20 14:59 22:59 06:59 Other: Weight 85.275 kg Results Abnormal Lab Results - Last 24 Hours (Table) 01/03/20 Range/Units 20:30 Urine Blood Small H (Negative) Urine Bacteria Occasional H (None) /hpf
[2020-01-04] MEDS: LACTATED RINGERS 1,000 ML IV SCH ×2 (07:36→14:52)
[2020-01-04 07:39] VITALS: RESP 16
[2020-01-04] MEDS ORDERED: MAGNESIUM SULFATE GM 6 GM in SODIUM CHLORIDE 0.9% 100 ML IVPB ONE (09:50)
[2020-01-04] MEDS ORDERED: MAGNESIUM SULFATE-WATER PMX 20 GM in WATER FOR INJECTION 1 500ML.BAG IV SCH (10:00)
[2020-01-04 10:30] LABS: Basophils % (A) 0 %; Eosinophils % (A) 0 %; HCT 34.9 % (34.0-46.0); HGB 11.5 gm/dL (11.4-16.0); Lymphocytes # (A) 0.9 k/uL (1.0-4.8); Lymphocytes % (A) 10 %; MCH 28.8 pg (25.0-35.0); MCV 87.3 fL (80.0-100.0); Mean Platelet Volume 8.2; Monocytes # (A) 0.2 k/uL (0-1.0); Monocytes % (A) 2 %; Neutrophils # (A) 8.1 k/uL (1.3-7.7); Neutrophils % (A) 88 %; Platelet Count 141 k/uL (150-450); RDW 15.8 % (11.5-15.5); WBC 9.2 k/uL (3.8-10.6)
[2020-01-04 11:35] VITALS: TEMP 98.2
--- NOTE | 2020-01-04 13:31 | P.PN ---
Progress Note - Text Progress Note Date: 01/04/20 Patient was seen this morning at a little before 9 AM. Her last check prior to that time was at approximately 10:30 PM. She states that she was still feeling contractions but not necessarily regularly. Some of the contractions were stronger though. When I checked her this morning I felt that she was 2 cm 60% and -2 station. The nurse through the night had said that she was 1-1/2 cm. heart tones on both babies were category 1. Contractions were occurring anywhere from 2-5 minutes apart. I put her back on the toco so that I could get an accurate picture of how often she was italia. I was called by the nurse approximately an hour and a half later and she stated that she was starting to feel contractions somewhat stronger and they were occurring approximately every 1 minute now. The nurse stated that her wanted to have her transferred. I therefore started her on magnesium sulfate to try to slow the contractions down so that she would be stable for transfer. I advised her I would be over an hour or 2 to check her again to make sure her cervix had not changed prior to transfer. I just checked her again now and she is still the same dilation. No bloody show was noted. Her contractions have spaced out to approximately 3-5 minutes apart and she is feeling them less intense. I've advised them that I do have a call into the maternal- medicine specialist to try to transfer her but I have to have them except her transfer before I can actually sent her there. Her is quite upset that she has not been transferred yet. I did explain that there is a process to the transfer and that we do have to make sure that she is stable for transfer before I can initiate that. I did call intact to Dr. Ring at [facility] in [place] and he was willing to accept the transfer however there unit was full and therefore could not accept transfer at this time. I called [facility] and they are willing to accept transfer of the patient. I discussed this with both the patient and her and they are willing to transfer there. She will be transferred under the care of Dr. Timmons. Nursing will give report and she will be transferred by ambulance on magnesium sulfate tocolysis.
--- NOTE | 2020-01-04 13:37 | P.DS ---
Providers Date of admission: 01/03/20 23:09 Expected date of discharge: 01/04/20 Attending physician: Taylor Carbajal Primary care physician: Taylor Carbajal [facility] Course: This is a 39-year-old female 5 para 3 with an estimated date of confinement of 02/10/2020, estimated gestational age of 35-5/7 weeks, who presented last night with contractions that were strong and regular. She did have 2 cervical exams 2 hours apart by nursing staff that showed a cervix dilation of 1-1/2 cm. She continued to contract but more irregularly. FFN was negative. She was observed overnight and this morning was starting to feel some stronger contractions and therefore I checked her and found her to be 2 cm/60%/- 2 station. I rechecked her after 3 hours and she had no cervical change. She was started on magnesium sulfate tocolysis approximately an hour and a half after her first check with me due to contractions every 1 minute. Currently her contractions have spaced out to 6-10 minutes apart and are much less intense. She is concerned about going into labor and delivery here and having her twins transferred to another facility because she is under 35 weeks and our nursery can only accommodate infant's over 35 weeks. She does have a history of rapid labors with her other pregnancies. At her request I did initiate transfer to a tertiary facility. [facility] in [place] would accept her however they were full. She was therefore accepted at [facility] under Dr. Timmons. She will be continued on magnesium sulfate tocolyse this. She did receive 1 dose of Celestone at 8:45 PM last night. Patient Condition at Discharge: Stable Plan - Discharge Summary New Discharge Prescriptions: No Action Pnv No.95/Ferrous Fum/Folic AC [ Multivitamin Tablet] 1 each PO DAILY Iron 1 tab PO DAILY Discharge Medication List Iron 1 tab PO DAILY 12/13/19 [History] Pnv No.95/Ferrous Fum/Folic AC [ Multivitamin Tablet] 1 each PO DAILY 12/13/19 [History] Discharge Disposition: DC/TRNS INTERMEDIATE CARE FAC
[2020-01-04 14:51] VITALS: BP 123/69; PULSE 113
== END 2020-01-04 14:00 ==
LOC: FBPOP 19:30 → 4FBP 23:09
PROVIDERS: ADMIT Obstetrics & Gynecology; ATTEND Obstetrics & Gynecology
DX: O60.03 Preterm labor without delivery, third trimester (principal); O30.003 Twin pregnancy, unspecified number of placenta and unspecified number of amniotic sacs, third trimester; O99.613 Diseases of the digestive system complicating pregnancy, third trimester; K21.9 Gastro-esophageal reflux disease without esophagitis; O26.893 Other specified pregnancy related conditions, third trimester; H91.90 Unspecified hearing loss, unspecified ear; Z3A.34 34 weeks gestation of pregnancy; Z98.890 Other specified postprocedural states; Z88.5 Allergy status to narcotic agent; Z83.3 Family history of diabetes mellitus; Z84.1 Family history of disorders of kidney and ureter; Z82.49 Family history of ischemic heart disease and other diseases of the circulatory system
CPT/HCPCS: 59025; 96361 ×2; 96365; 96372 ×2; 82731; 85025; 81001; 76805; 76810; G0463; G0378; J3475 ×2; J0702; 96360; 99214

== ENCOUNTER 2020-01-05 18:50 | Outpatient (CLI) | payer OTHER ==
[2020-01-05 20:32] VITALS: BP 110/75; PULSE 110; RESP 18; TEMP 98.7
--- NOTE | 2020-01-06 11:27 | P.MSEPDOC ---
Presenting Problems - Arrival Data Date of Arrival on Unit: 01/05/20 Time of Arrival on Unit: 18:50 Mode of Transport: Ambulatory - Complaint OB-Reason for Admission/Chief Complaint: Decreased Movement Medical History - Information : 5 Para: 3 Term: 3 : 0 Abortions: Spontaneous or Elective: 1 Number of Living Children: 3 - Gestational Age Gestational Age by ASHLEE (wks/days): 34 Weeks and 6 Days - History Complications: Multiple Review of Systems - Review of Systems Constitutional: No problems Breast: No problems ENT: No problems Cardiovascular: No problems Respiratory: No problems Gastrointestinal: No problems Genitourinary: No problems Musculoskeletal: No problems Neurological: No problems Skin: No problems Vital Signs - Temperature Temperature: 98.7 F Temperature Source: Temporal Artery Scan - Pulse Pulse Oximetery Pulse Rate: 110 Pulse Assessment Method: Pulse Oximetry - Respirations Respiratory Rate: 18 Oxygen Delivery Method: Room Air - Blood Pressure Right Arm Blood Pressure: 110/75 Blood Pressure Mean: 86 Blood Pressure Source: Automatic Cuff Medical Screen Scoring (Pre) - Cervical Exam Dilation: Exam Deferred Effacement: Exam Deferred Membranes: Intact - Uterine Contractions Frequency: > 5 minutes apart = 1 Duration: N/A Intensity: N/A - Maternal Vital Signs Maternal Temperature: N/A Maternal Blood Pressure: N/A Signs of Preeclampsia: N/A Maternal Respirations: N/A - Maternal Trauma Maternal Trauma: N/A - Assessment - Baby A Baseline FHR: 150 Heart Rate - NICHD Category: Category I (Normal) = 0 NST: Reactive Position: N/A Station: N/A - Assessment - Baby B Baseline FHR: 135 Heart Rate - NICHD Category: Category I (Normal) = 0 NST: Reactive Position: N/A Station: N/A - Total Score - Baby A Total Score - Baby A: 1 - Total Score - Baby B Total Score - Baby B: 1 - Total Score - Baby C Total Score - Baby C: 1 - Level of Risk - Baby A Level of Risk - Baby A: Low (0-5) - Level of Risk - Baby B Level of Risk - Baby B: Low (0-5) - Level of Risk - Baby C Level of Risk - Baby C: Low (0-5) Physician Notification (Pre) - Physician Notified Physician Notified Date: 01/05/20 Physician Notified Time: 19:25 New Order Received: Yes - Notification Comment Comment: 1924 - Dr. Carbajal on unit, report given from Rohini Ibrahim and Neela Skinner on pt's complaints of. decreased movement since this morning. Vitals are WNL and both babies are. reactive. Pt appears to have some uterine irritability but denies any pain from. contractions. Abdomen is soft to palpation. Pt is feeling some movement at this. time. Dr. Carbajal would like to offer the pt a cervical exam but she is okay if the pt. refuses. 1929 - Pt offered a SVE at this time but refuses. Dr. Carbajal notified. Pt also asked if. Dr. Argueta could manage her care next week. Dr. Carbajal notified of pt's question. Per Dr. Carbajal, the physician that is director of provider relations would manage this pt, not Dr. Argueta specifically. Pt notified. 1929 - Orders from Dr. Carbajal to discharge pt with instructions to keep her next. appointment and reassure her that both babies are reactive but to continue to monitor. their movements. Also, instruct pt that if she is not comfortable with any of the. doctors here monitoring her that she has a right to always go to another facility for. care. Disposition - Disposition OB Disposition: Discharge to home Discharge Date: 01/05/20 Discharge Time: 19:40 I agree with the RN Medical Screening Exam: Yes Risk & Benefit of care provided described in d/c instruction: Yes Diagnosis: DECREASED MOVEMENTS, THIRD TRIMESTER, FETUS 1 (Patient presented with complaints of not feeling movement on either twin since this morning. She had been transferred to [facility] yesterday afternoon with labor and contractions. She was discharged later that evening after her contractions did subside. Of note, she did talk to Eufemia, the nurse in our office, this afternoon and did not mention anything about not feeling movement. Both twins are reactive at this time. She is feeling movement now. She is instructed to continue doing regular kick counts. She is instructed to return if any signs of labor, decreased movement, vaginal bleeding, or any other concerns.)
== END 2020-01-05 19:40 | disposition home or self-care (01) ==
LOC: FBPOP 18:50
PROVIDERS: ATTEND Obstetrics & Gynecology
DX: O36.8131 Decreased fetal movements, third trimester, fetus 1 (principal); Z3A.34 34 weeks gestation of pregnancy
CPT/HCPCS: 59025; G0463; 99213

== ENCOUNTER 2020-01-08 12:46 | Outpatient (CLI) | payer OTHER | END 2020-01-08 13:06 | disposition home or self-care (01) | LOC: FBPOP 12:46 | PROVIDERS: ATTEND Obstetrics & Gynecology | DX: O30.003 Twin pregnancy, unspecified number of placenta and unspecified number of amniotic sacs, third trimester (principal); Z3A.36 36 weeks gestation of pregnancy | CPT/HCPCS: 59025; G0463; 99213 ==

== ENCOUNTER 2020-01-12 11:40 | Outpatient (CLI) | payer OTHER ==
[2020-01-12 13:16] VITALS: BP 115/77; PULSE 120; RESP 18; TEMP 96.7
--- NOTE | 2020-01-15 08:01 | P.MSEPDOC ---
Presenting Problems - Arrival Data Date of Arrival on Unit: 01/12/20 Time of Arrival on Unit: 11:40 Mode of Transport: Ambulatory - Complaint OB-Reason for Admission/Chief Complaint: NST Comment: pt came to triage with written order for 2x a week nst for twin gestation and AMA Medical History - Information : 5 Para: 3 Term: 3 : 0 Abortions: Spontaneous or Elective: 1 Number of Living Children: 3 - Gestational Age Gestational Age by ASHLEE (wks/days): 35 Weeks and 6 Days - History Complications: Multiple , Other Comment: AMA Review of Systems - Review of Systems Constitutional: No problems Breast: No problems ENT: No problems Cardiovascular: No problems Respiratory: No problems Gastrointestinal: No problems Genitourinary: No problems Musculoskeletal: No problems Neurological: No problems Skin: No problems Vital Signs - Temperature Temperature: 96.7 F Temperature Source: Temporal Artery Scan - Pulse Right Brachial Pulse Rate: 120 Pulse Assessment Method: Automatic Cuff - Respirations Respiratory Rate: 18 Oxygen Delivery Method: Room Air - Blood Pressure Right Arm Blood Pressure: 115/77 Blood Pressure Mean: 89 Blood Pressure Source: Automatic Cuff Physician Notification (Pre) - Physician Notified Physician Notified Date: 01/12/20 Physician Notified Time: 12:22 New Order Received: Yes - Notification Comment Comment: Dr. Argueta came over to triage and talked to pt about plan of care for when she comes into deliver twins, she will call pt's later tonight and discuss plan with him as well and answer any question, nst's reactive, pt discharged home, she has appt with Dr. Carbajal on Wednesday Disposition - Disposition OB Disposition: Triage, Discharge to home, Written follow up instructions reviewed Discharge Date: 01/12/20 Discharge Time: 12:35 I agree with the RN Medical Screening Exam: Yes Physician's MSE Comment: I had a long discussion with Taylor in the triage about her plan of care. She and her both expressed concern about having Dr. Garsia present or in charge of her delivery. I advised her that I'm on-call the weekend and will be handling her care if she comes in, which she seems to be comfortable with. I was completely honest with the situation where Dr. Soto and Dr. Garsia are here Wednesday and Dr. Garsia is environmental programs manager on Wednesday. If she came in at those times and her baby was in distress she agreed to let Dr. Garsia take care of her. She needs to speak with Dr. Carbajal on Wednesday to come up with a plan for Wednesday. She may have to go to a different hospital if she does not want Dr. Garsia to take care of her Wednesday. The patient was emotional about the situation and said, " It was such a small thing that has developed into bobbi ething so big." This is in reference to their perceived confrontation with Dr Garsia last week. I tried to reassure Taylor that we all, including Dr Garsia, want her and the babies to be healthy and safe. We all want her to be comfortable and have a good experience while keeping everyone safe. I did tell her I would speak with her later in the day. Risk & Benefit of care provided described in d/c instruction: Yes Diagnosis: TWIN , DICHORIONIC/DIAMNIOTIC, THIRD TRIMESTER
== END 2020-01-12 12:35 | disposition home or self-care (01) ==
LOC: FBPOP 11:40
PROVIDERS: ATTEND Obstetrics & Gynecology
DX: O30.009 Twin pregnancy, unspecified number of placenta and unspecified number of amniotic sacs, unspecified trimester (principal); Z3A.00 Weeks of gestation of pregnancy not specified
CPT/HCPCS: 59025

== ENCOUNTER 2020-01-16 10:47 | Outpatient (CLI) | payer OTHER | END 2020-01-16 11:30 | disposition home or self-care (01) | LOC: FBPOP 10:47 | PROVIDERS: ATTEND Obstetrics & Gynecology | DX: O30.009 Twin pregnancy, unspecified number of placenta and unspecified number of amniotic sacs, unspecified trimester (principal) | CPT/HCPCS: 59025 ==

== ENCOUNTER 2020-01-19 08:39 | Outpatient (CLI) | payer OTHER | END 2020-01-19 09:45 | disposition home or self-care (01) | LOC: FBPOP 08:39 | PROVIDERS: ATTEND Obstetrics & Gynecology | DX: O30.009 Twin pregnancy, unspecified number of placenta and unspecified number of amniotic sacs, unspecified trimester (principal); Z3A.00 Weeks of gestation of pregnancy not specified | CPT/HCPCS: 59025 ==

== ENCOUNTER 2020-01-22 06:34 | Inpatient (IN) | payer OTHER ==
--- NOTE | 2020-01-21 18:28 | P.HPOB ---
History of Present Illness H&P Date: 01/21/20 Chief Complaint: Twin gestation This is a 39 y.o. female, 5, para 3, with an estimated date of confinement of 02/10/2020, estimated gestational age of 37-2/7 weeks with dichorionic, diamniotic twin gestation who presents for scheduled primary section with bilateral partial salpingectomy. Baby A is vertex and baby B is breech. She was counselled on risks of vaginal delivery when 2nd twin is breech and the risks to fetus if the 2nd twin got stuck or the possible need for emergency . She wishes to proceed with scheduled section. She has also requested bilateral partial salpingectomy for family planning. Patient and her were counselled extensively on risks and benefits of section. She admits to good movement and has been doing twice weekly NSTs. Growth has been concordant. She did have some issues with contractions over the last month and was transferred to [facility] at 34- 5/7 weeks. She did receive 2 doses of steroids at that time. labs: GC/Chlamydia/Trich-neg Hepatitis B surface antigen-neg Rubella-immune Blood type-A+ Antibody screen-neg Hemoglobin-12.1 Toxoplasma-neg Glucose-81 1 hr. GTT-144; 3 hr. GTT-within normal limits GBS-neg (Hx of +GBS in previous ) OB Hx: . History of 3 vaginal deliveries. 1 miscarriage. 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 Review of Systems Constitutional: Denies chills, Denies fever Eyes: denies blurred vision, denies pain Ears, nose, mouth and throat: Denies headache, Denies sore throat Cardiovascular: Denies chest pain, Denies shortness of breath Respiratory: Denies cough Gastrointestinal: Reports abdominal pain (Irregular ctxs) Genitourinary: Reports pelvic pain, Reports Musculoskeletal: Reports low back pain Integumentary: Denies pruritus, Denies rash Neurological: Denies numbness, Denies weakness Psychiatric: Denies anxiety, Denies depression Past Medical History Past Medical History: GERD/Reflux History of Any Multi-Drug Resistant Organisms: None Reported Additional Past Surgical History / Comment(s): D&C Past Anesthesia/Blood Transfusion Reactions: No Reported Reaction Past Psychological History: Depression Smoking Status: Never smoker Past Alcohol Use History: None Reported Past Drug Use History: None Reported - Past Family History Mother Family Medical History: Diabetes Mellitus, Dialysis, Hypertension Medications and Allergies Home Medications Medication Instructions Recorded Confirmed Type Iron 1 tab PO DAILY 12/13/19 01/22/20 History Pnv No.95/Ferrous Fum/Folic AC 1 each PO DAILY 12/13/19 01/22/20 History [ Multivitamin Tablet] Allergies Allergy/AdvReac Type Severity Reaction Status Date / Time codeine AdvReac Unknown Verified 01/21/20 18:22 terbinafine [From Lamisil] AdvReac Unknown Verified 01/21/20 18:22 Exam Osteopathic Statement: *. No significant issues noted on an osteopathic structural exam other than those noted in the History and Physical/Consult. HEENT: within normal limits Heart: regular rate and rhythm Lungs: clear to auscultation bilaterally Abdomen: Cervix: 2 cm/60%/-2 at last check about 2 weeks ago heart tones: reactive both twins Contractions: irregular Extremities: neg. Mateo's. Results Result Diagrams: 01/22/20 06:58 Assessment and Plan (1) Family planning Current Visit: No Status: Acute Code(s): Z30.09 - ENCOUNTER FOR OTH GENERAL CNSL AND ADVICE ON CONTRACEPTION SNOMED Code(s): 885452004 (2) Twin gestation in third trimester Current Visit: No Status: Acute Code(s): O30.003 - TWIN PREG, UNSP NUM PLCNTA & AMNIO SACS, THIRD TRIMESTER SNOMED Code(s): 54886205 Plan: Proceed with primary low transverse section with bilateral partial salpingectomy. I have discussed the risks, benefits, and alternative therapies for the above- mentioned procedure and for both sedation/anesthesia as well as necessary blood products administration, if indicated, as they pertain to this patient. The patient has indicated her understanding and acceptance of the risks and procedures discussed.
[2020-01-22] MEDS ORDERED: LACTATED RINGERS 1,000 ML IV ONE (06:47)
[2020-01-22] MEDS ORDERED: CITRIC ACID-SODIUM CITRATE 15 ML CUP PO ONE (06:47)
[2020-01-22] MEDS ORDERED: LIDOCAINE 1% (10MG/ML) FOR IV START INTRADERMA PRN (06:47)
[2020-01-22] MEDS: LACTATED RINGERS 1,000 ML IV SCH ×2 (06:57→17:30)
[2020-01-22 07:24] LABS: Basophils % (A) 0 %; Eosinophils % (A) 1 %; HCT 36.4 % (34.0-46.0); HGB 12.1 gm/dL (11.4-16.0); Lymphocytes # (A) 1.5 k/uL (1.0-4.8); Lymphocytes % (A) 23 %; MCH 28.7 pg (25.0-35.0); MCHC 33.1 g/dL (31.0-37.0); MCV 86.6 fL (80.0-100.0); Mean Platelet Volume 7.9; Monocytes # (A) 0.4 k/uL (0-1.0); Monocytes % (A) 6 %; Neutrophils # (A) 4.5 k/uL (1.3-7.7); Neutrophils % (A) 69 %; Platelet Count 130 k/uL (150-450); RDW 15.6 % (11.5-15.5); WBC 6.6 k/uL (3.8-10.6)
[2020-01-22] MEDS ORDERED: OXYTOCIN 10 UNIT/ML 1 ML VIAL ONE (07:44)
[2020-01-22] MEDS ORDERED: fentaNYL (PF) 50 MCG/ML 2 ML AMP ONE (07:44)
[2020-01-22] MEDS ORDERED: KETOROLAC 15 MG/ML 1 ML VIAL ONE (07:44)
[2020-01-22] MEDS ORDERED: ONDANSETRON 4 MG/2 ML VIAL ONE (07:44)
[2020-01-22] MEDS ORDERED: ePHEDrine SULFATE/0.9% NACL/PF 50 MG/5 ML SYRINGE IV ONE (07:44)
[2020-01-22] MEDS ORDERED: LIDOCAINE 2% (PF) 20 MG/ML 2 ML AMP ONE (07:44)
--- NOTE | 2020-01-22 08:55 | P.OP ---
Date of Procedure: 01/22/20 Preoperative Diagnosis: 1. Twin gestation at 37-2/7 weeks. 2. Vertex/breech presentation. 3. History of labor. Postoperative Diagnosis: Same Procedure(s) Performed: Primary low transverse section Anesthesia: epidural Surgeon: Taylor Carbajal Counter Roller #1: Kiesha Argueta Estimated Blood Loss (ml): 650 Pathology: other (Placentas) Condition: stable Disposition: floor Indications for Procedure: This is a 39-year-old female 5 para 3 at 37-2/7 weeks with twin gestation who presents for scheduled primary section due to twin gestation and history of labor during this . Twin A has been vertex and twin B has been breech. She initially had signed consent for a tubal ligation but currently has decided not to proceed with that portion of the procedure. I have discussed the risks, benefits, and alternative therapies for the above- mentioned procedure and for both sedation/anesthesia as well as necessary blood products administration, if indicated, as they pertain to this patient. The patient has indicated her understanding and acceptance of the risks and procedures discussed. Operative Findings: Baby A is a viable male in the vertex presentation with scores of 9 at 1 minute and 9 at 5 minutes and infant weight of 6 lbs. 12 oz. Baby B is a viable male infant in the footling breech presentation with scores of 9 at 1 minute and 9 at 5 minutes and infant weight of 6 lbs. 0 oz. There were 2 separate sacs and clear fluid was noted in both sacs. Separate placentas were also noted. Normal uterus tubes and ovaries are noted. Description of Procedure: The patient is taken to the operating room where she is placed in the dorsal supine position with leftward tilt after epidural anesthesia is given. The epidural was placed in her room and initially bolused in her room and then she was transported to the operating room. She is prepped and draped in the normal sterile fashion. Skin was tested and found to be adequately anesthetized. A Pfannenstiel skin incision was made with a scalpel. A second knife was used to carry the incision down to the underlying layer of fascia. The fascia was nicked in the midline with a scalpel and then extended laterally bilaterally with Vences scissors. The anterior lip of the fascia was grasped with 2 Satish clamps and then dissected off the underlying rectus muscle in the midline with Vences scissors. The inferior aspect of the fascial incision was grasped with 2 Satish clamps and dissected off the underlying rectus muscle and the midline with Vences scissors. Next the peritoneum layer was tented up with 2 hemostats and then entered sharply with the scalpel. The incision is extended superiorly and inferiorly with Metzenbaum scissors. Next a DeLee retractor is placed. The vesicouterine peritoneum is entered sharply with Metzenbaum scissors and extended laterally bilaterally with Metzenbaum scissors and then the bladder flap is pushed inferiorly. The lower uterine segment is incised in transverse fashion with the scalpel and then bluntly entered with a hemostat. Clear fluid is noted. The incision was then extended laterally bilaterally with 2 fingers. Next baby A's head is delivered through the incision. Nose and mouth are bulb suctioned. The remainder of the is easily delivered and placed on mother's abdomen. Cord is clamped and cut. is taken to warmer by nursing staff to awaiting medical service technician. Next baby B's feet are palpated and once both feet were grasped, the second sac was ruptured with a hemostat and clear fluid was noted. The 's feet were delivered followed by the buttocks followed by the trunk and then each arm in a flexed position and the head in a flexed position. Nose and mouth were then bulb suctioned. Cord was clamped and cut and infant was again taken to warmer for evaluation by the awaiting pediatric staff. Uterine fundus is gently massaged and placentas are delivered manually. Uterus is exteriorized and cleared of all clots and debris. Uterine incision is closed with 0 Vicryl suture in a running locked fashion. A second layer of 0 Vicryl suture is used in a running fashion for hemostasis. Several interrupted stitches are placed for hemostasis. Once adequate hemostasis as assured, the vesicouterine peritoneum is reapproximated with 2-0 Vicryl suture in a running fashion. Posterior cul-de-sac is suctioned of all clots and debris. Uterus is returned to the abdomen. Incision is noted to be hemostatic. Peritoneal layer is closed with 0 Vicryl suture in a running fashion. Muscle layer is reapproximated with 0 Vicryl suture in interrupted fashion. Fascia layer is then closed with 0 PDS suture with 2 sutures meeting in the midline and the knots buried in either side and in the midline. The subcutaneous tissue was then closed with 2-0 Vicryl suture. Skin layer was then closed with malik. All sponge and needle counts are correct. The patient is taken to recovery room in stable condition.
[2020-01-22] MEDS ORDERED: LANOLIN CREAM 5 GM TUBE TOPICAL PRN (09:42)
[2020-01-22] MEDS ORDERED: ACETAMINOPHEN TAB 325 MG TAB PO PRN (09:42)
[2020-01-22] MEDS ORDERED: METOCLOPRAMIDE 5 MG/ML 2 ML VIAL IVP PRN (09:42)
[2020-01-22] MEDS ORDERED: ZOLPIDEM 5 MG TAB PO PRN (09:42)
[2020-01-22] MEDS ORDERED: OXYTOCIN 20 UNITS/1000 ML NS 1,000 ML IV SCH (09:42)
[2020-01-22] MEDS ORDERED: diphenhydrAMINE 25 MG CAP PO PRN (09:42)
[2020-01-22] MEDS ORDERED: SIMETHICONE 80 MG CHEWABLE PO PRN (09:42)
[2020-01-22] MEDS ORDERED: diphenhydrAMINE 50 MG CAP PO PRN (09:42)
[2020-01-22] MEDS ORDERED: diphenhydrAMINE 50 MG/ML 1 ML VIAL IVP PRN ×2 (09:42)
[2020-01-22] MEDS ORDERED: NALOXONE 0.4 MG/ML 1 ML VIAL IV PRN (09:42)
[2020-01-22] MEDS ORDERED: HYDROmorphone PCA 10 MG/50 ML BAG IV PRN (09:42)
[2020-01-22] MEDS ORDERED: ONDANSETRON 4 MG/2 ML VIAL IVP PRN (09:42)
[2020-01-22] MEDS: KETOROLAC 15 MG/ML 1 ML VIAL IVP PRN ×2 (14:58→20:56)
[2020-01-22] MEDS: SENNOSIDES-DOCUSATE SODIUM 1 EACH TAB PO SCH (20:28)
[2020-01-23] MEDS: LACTATED RINGERS 1,000 ML IV SCH ×2 (01:09→19:41)
[2020-01-23] MEDS: KETOROLAC 15 MG/ML 1 ML VIAL IVP PRN (03:00)
[2020-01-23] MEDS: SENNOSIDES-DOCUSATE SODIUM 1 EACH TAB PO SCH ×2 (08:22→19:39)
[2020-01-23] MEDS: HYDROcodone/APAP 7.5-325MG 1 EACH TAB PO PRN ×3 (08:22→20:55)
--- NOTE | 2020-01-23 09:04 | P.PNOBGPC ---
Subjective - Subjective Principal diagnosis: Status post primary section postoperative day #1 Interval history: Patient is ambulating and urinating without difficulty. Her pain has not been very well controlled through the night due to the fact that she did not push the button on her [employer]IST[employer] TEACHER pump. She stated the [employer] TEACHER was making her nauseated and therefore she did not want to push the button. She was getting Toradol through the night. She did just take a Beaumont this morning. She is doing well with breast-feeding on baby a. Baby B is working at the breast-feeding. Lochia has been minimal. Patient refuses blood draw this morning. Patient's states she does not want me to do the circumcisions on the babies. He told me that if he had known his would be in this much pain, and they would not have done the section. He asked why she couldn't have been transferred to where they would've offered her a vaginal delivery. I did explain to him that I have offered his on several occasions to be transferred to another facility for care if she does not feel comfortable with my care. This was offered to her at her appointment last week. She declined and stated she just wanted to go ahead with the section on Wednesday. He stated that they did try to obtain care at several high risk facilities and "they would not take us". However he did say that he was able to get an appointment at [facility] but it would've been after the date for section and they were worried that she would go into labor before then and therefore felt "stuck" with coming here. He did inform me that they no longer want to see me after this delivery. They would like me to continue taking care of her while she is in the hospital. I advised them both that I have always provided care within the standard of care and always answered all of their questions. Patient reports: Reports appetite normal, Reports voiding normally, Reports pain poorly controlled, Reports ambulating normally, Denies nauseated [place]: doing well, nursing well Objective - Vital Signs Latest vital signs: Vital Signs Temp Pulse Resp BP Pulse Ox 01/23/20 08:00 98.9 F 98 16 119/77 97 01/23/20 07:31 98.0 F 76 18 105/62 99 01/23/20 03:54 98.8 F 81 16 107/66 96 01/23/20 00:00 97.9 F 79 16 125/77 98 01/22/20 20:00 98.0 F 86 16 119/76 96 01/22/20 16:00 97.8 F 73 16 119/70 99 01/22/20 10:50 85 16 124/72 95 01/22/20 10:20 90 14 108/63 98 01/22/20 09:50 68 16 104/56 100 01/22/20 09:42 100 01/22/20 09:35 106 H 14 165/59 100 01/22/20 09:20 96.7 F L 98 16 117/55 99 01/22/20 09:05 84 16 99 Intake and Output 01/22/20 01/23/20 01/23/20 22:59 06:59 14:59 Output Total 2300 Balance -2300 Output: Urine 2300 Uretheral (Rendon) 1000 Other: # Voids 0 1 1 - Exam Extremities: Absent: tenderness, edema Abdomen: Present: normal appearance, soft (Positive bowel sounds 4), tenderness (Mild). Absent: distention Incision: Present: normal, dry, intact. Absent: erythematous Uterus: Present: normal, firm. Absent: tenderness Assessment and Plan Assessment: Status post primary section for twin gestation postoperative day #1 (1) Family planning Current Visit: No Status: Acute Code(s): Z30.09 - ENCOUNTER FOR OT GENERAL CNSL AND ADVICE ON CONTRACEPTION SNOMED Code(s): 141001120 (2) Twin gestation in third trimester Current Visit: No Status: Acute Code(s): O30.003 - TWIN PREG, UNSP NUM PLCNTA & AMNIO SACS, THIRD TRIMESTER SNOMED Code(s): 82289019 Plan: Patient is encouraged to continue alternating her Beaumont with ibuprofen. She is encouraged to continue ambulating. If her pain is better controlled tomorrow, she may be old go home as long as babies are able to be discharged. All questions were answered to the best of my ability.
[2020-01-23 10:47] LABS: HCT 31.4 % (34.0-46.0); HGB 10.3 gm/dL (11.4-16.0); MCH 28.6 pg (25.0-35.0); MCHC 32.6 g/dL (31.0-37.0); MCV 87.7 fL (80.0-100.0); Mean Platelet Volume 8.2; Platelet Count 121 k/uL (150-450); RBC 3.58 m/uL (3.80-5.40); RDW 15.9 % (11.5-15.5); WBC 8.7 k/uL (3.8-10.6)
[2020-01-23] MEDS: IBUPROFEN 600 MG TAB PO PRN ×2 (11:29→18:07)
[2020-01-23] MEDS: PRENATAL VIT-IRON-FOLIC ACID 1 EACH CAP PO SCH (19:42)
[2020-01-24] MEDS: IBUPROFEN 600 MG TAB PO PRN ×3 (00:13→12:21)
[2020-01-24] MEDS: LACTATED RINGERS 1,000 ML IV SCH (00:42)
[2020-01-24] MEDS: HYDROcodone/APAP 7.5-325MG 1 EACH TAB PO PRN (03:21)
[2020-01-24] MEDS: SENNOSIDES-DOCUSATE SODIUM 1 EACH TAB PO SCH (08:25)
--- NOTE | 2020-01-24 08:34 | P.PNOBGPC ---
Subjective - Subjective Principal diagnosis: Status post primary section postoperative day #2 Interval history: Patient is doing better today. She has been keeping up with her pain medication. She is doing better with breast-feeding. Lochia has been minimal. She is ambulating. She is passing flatus but no bowel movement yet. Patient reports: Reports appetite normal, Reports voiding normally, Reports pain well controlled, Reports ambulating normally [place]: doing well, nursing well Objective - Vital Signs Latest vital signs: Vital Signs Temp Pulse Resp BP Pulse Ox 01/24/20 00:00 98.6 F 75 16 113/65 97 01/23/20 16:00 98.6 F 93 16 102/64 96 Intake and Output 01/23/20 01/24/20 01/24/20 22:59 06:59 14:59 Other: # Voids 1 1 - Exam Lungs: bilateral: normal Extremities: Present: normal Abdomen: Present: normal appearance, soft. Absent: distention, tenderness Incision: Present: normal, dry, intact. Absent: erythematous Uterus: Present: normal, firm. Absent: tenderness - Labs Labs: Abnormal Lab Results - Last 24 Hours (Table) 01/23/20 Range/Units 10:30 RBC 3.58 L (3.80-5.40) m/uL Hgb 10.3 L (11.4-16.0) gm/dL Hct 31.4 L (34.0-46.0) % RDW 15.9 H (11.5-15.5) % Plt Count 121 L (150-450) k/uL Assessment and Plan Assessment: Status post primary section postoperative day #2 (1) Family planning Current Visit: No Status: Acute Code(s): Z30.09 - ENCOUNTER FOR OT GENERAL CNSL AND ADVICE ON CONTRACEPTION SNOMED Code(s): 341343671 (2) Twin gestation in third trimester Current Visit: No Status: Acute Code(s): O30.003 - TWIN PREG, UNSP NUM PLCNTA & AMNIO SACS, THIRD TRIMESTER SNOMED Code(s): 75395580 Plan: We'll continue with postoperative and care today. She would like to make sure her pain is better controlled before going home. She will let me know if she changes her mind and decides to go home later today. She does state she already has a breast pump at home.
[2020-01-24] MEDS: PRENATAL VIT-IRON-FOLIC ACID 1 EACH CAP PO SCH (09:46)
[2020-01-24] MEDS: HYDROcodone/APAP 5-325MG 1 EACH TAB PO PRN ×2 (09:47→16:49)
[2020-01-24 10:16] VITALS: RESP 18
--- NOTE | 2020-01-24 17:07 | P.DS ---
Providers Date of admission: 01/22/20 06:34 Expected date of discharge: 01/24/20 Attending physician: Taylor Carbajal Primary care physician: Stated None - Discharge Diagnosis(es) (1) Family planning Current Visit: No Status: Acute (2) Twin gestation in third trimester Current Visit: No Status: Acute Hospital Course: This is a 39-year-old female 5 para 3 at 37-2/7 weeks who presented for scheduled section due to twin gestation. She underwent a primary section on 01/22/2020 under epidural anesthesia and delivered a viable male infants with baby A in the vertex presentation and baby B in the breech presentation. Please see operative note for details of the delivery. Postoperatively she had a SAILING MASTER pump. She only use the pump one time and stopped using it after that due to nausea. Her pain control was not very good the first night but then on postoperative day #2 she has been doing well alternating between ibuprofen and [place]. She is passing flatus and urinating without difficulty. She is breast-feeding without difficulty. Vital signs are stable. Abdomen is soft with positive bowel sounds 4. Incision is clean dry and intact. Sania will be removed and Steri-Strips placed prior to discharge. Extremities show negative Homans. Impression is status post primary section postoperative day #2. Plan is to discharge home today. Routine postoperative and instructions are given. She is instructed to follow-up in the office in 1 week for a postoperative check. She is given a prescription for ibuprofen and [place]. She has been counseled on opioid use and has signed an opioid start taking form. She is advised to call the office if she has any further questions or concerns prior to her appointment time. She initially wanted circumcisions on both babies but later declined on postoperative day #1. She was advised that she can see a pediatric urologist as an outpatient to have this done. Procedures: Primary low transverse section on 01/22/2020 Patient Condition at Discharge: Stable Plan - Discharge Summary New Discharge Prescriptions: New Ibuprofen [Motrin] 600 mg PO Q6HR PRN #60 tab PRN Reason: Mild Pain Or Fever >= 100.5 HYDROcodone/APAP 7.5-325MG [[place] 7.5-325] 1 each PO Q6H PRN #28 tab PRN Reason: Severe Pain Continue Pnv No.95/Ferrous Fum/Folic AC [ Multivitamin Tablet] 1 each PO DAILY Iron 1 tab PO DAILY Discharge Medication List Iron 1 tab PO DAILY 12/13/19 [History] Pnv No.95/Ferrous Fum/Folic AC [ Multivitamin Tablet] 1 each PO DAILY 12/13/19 [History] HYDROcodone/APAP 7.5-325MG [[place] 7.5-325] 1 each PO Q6H PRN #28 tab 01/24/20 [Rx] Ibuprofen [Motrin] 600 mg PO Q6HR PRN #60 tab 01/24/20 [Rx] Follow up Appointment(s)/Referral(s): Taylor Carbajal DO [Doctor of Osteopathic Medicine] - 1 Week Activity/Diet/Wound Care/Special Instructions: Instructions 1. Do not begin any exercise program for 3 weeks. 2. Do not resume sexual relations for 3 weeks or longer if uncomfortable. 3. You may take tub baths or showers at any time. 4. You may use tampons if desired after 3 weeks. 5. Keep the area of episiotomy (stitches) clean and dry. 6. If you are not nursing, wear a good fitting, supportive bra during the day and limit fluid intake for at least 1 week to prevent breast engorgement. 7. Call the office, [phone], within the next week to make appointment for your 6 week checkup if it has not already been made. 8. Report any of the following occurrences to the doctor promptly: a. Heavy, excessive bleeding b. Chills, fever c. Burning or frequency of urination d. Pain or redness and breasts if nursing e. Increasing pain or swelling in episiotomy (stitches). In addition to the above instructions, the following additional should be followed: 1. No heavy lifting or straining (exercising) until after 6 week checkup. 2. Keep abdominal incision clean and dry: You may wear a dressing if more comfortable. 3. Make office appointment for 10 days after going home or as instructed by her doctor. Discharge Disposition: HOME SELF-CARE Plan of Treatment: Follow up appointment 1 week 01/30/20 at 9:00am 6 week 03/04/20 at 11:30am
[2020-01-24 19:34] VITALS: BP 110/65; PULSE 102; TEMP 98.7
== END 2020-01-24 19:30 | disposition home or self-care (01) | DRG 788 ==
LOC: 4FBP 06:34
PROVIDERS: ADMIT Obstetrics & Gynecology; ATTEND Obstetrics & Gynecology
PROC: 10D00Z1 Extraction of Products of Conception, Low, Open Approach (ICD-10-PCS; principal; 2020-01-22 08:00)
DX: O30.043 Twin pregnancy, dichorionic/diamniotic, third trimester (principal); O32.1XX1 Maternal care for breech presentation, fetus 1; F32.9 Major depressive disorder, single episode, unspecified; O99.344 Other mental disorders complicating childbirth; Z37.2 Twins, both liveborn; Z3A.37 37 weeks gestation of pregnancy; O32.1XX2 Maternal care for breech presentation, fetus 2; Z82.49 Family history of ischemic heart disease and other diseases of the circulatory system; Z83.3 Family history of diabetes mellitus; Z84.1 Family history of disorders of kidney and ureter; Z53.20 Procedure and treatment not carried out because of patient's decision for unspecified reasons; K21.9 Gastro-esophageal reflux disease without esophagitis; Z88.5 Allergy status to narcotic agent; Z88.8 Allergy status to other drugs, medicaments and biological substances
CPT/HCPCS: 85025; 85027; 86850; 86900; 86901; 88307